=== PATIENT | male | born 1960 | race Caucasian/White ===

== ENCOUNTER 2017-10-05 23:06 | Emergency (ER) | payer MEDICAID ==
[~2017-10-05] VITALS: Ht 170.2 cm; Wt 63.5 kg
[2017-10-05 23:54] LABS: BASOPHILS ABSOLUTE AUTO 0.03 K/mm3 (0.00-0.23); BASOPHILS PERCENT AUTO 0 % (0-2); EOSINOPHILS PERCENT AUTO 0 % (0-6); Hemoglobin 15.4 g/dL (13.5-17.5); IMMATURE GRAN ABSOLUTE AUTO 0.04 K/mm3 (0.00-0.10); IMMATURE GRAN PERCENT AUTO 0 % (0-1); LYMPHOCYTES ABSOLUTE AUTO 1.37 K/mm3 (0.84-5.20); LYMPHOCYTES PERCENT AUTO 11 % (21-46); MONOCYTES ABSOLUTE AUTO 0.89 K/mm3 (0.16-1.47); MONOCYTES PERCENT AUTO 7 % (4-13); Mean Corpuscular HGB 29.7 pg (26.0-34.0); Mean Corpuscular HGB Conc 33.5 g/dL (31.5-36.5); Mean Corpuscular Volume 89 fL (80-100); Mean Platelet Volume 10.8 fL (9.1-12.4); NEUTROPHILS ABSOLUTE AUTO 10.63 K/mm3 (1.96-9.15); NEUTROPHILS PERCENT AUTO 82 % (41-73); Platelet Count 395 K/mm3 (150-400); RDW Coefficient Variation 12.6 % (11.7-14.2); RDW Standard Deviation 41.1 fL (35.1-46.3); Red Blood Cell Count 5.18 M/mm3 (4.30-5.90); White Blood Cell Count 12.96 K/mm3 (4.00-11.30)
[2017-10-06] MEDS ORDERED: THC (00:04)
[2017-10-06 00:12] LABS: Alanine Aminotransfer (ALT/SGP 20 U/L (12-78); Albumin, Blood 4.7 g/dL (3.4-5.0); Albumin/Globulin Ratio 1.3 (0.8-1.8); Alk Phos 95 U/L (50-136); Anion Gap 12 mmol/L (6-16); Aspartate Aminotrans (AST/SGOT 14 U/L (12-37); Bilirubin, Total 0.4 mg/dL (0.1-1.0); Blood Urea Nitrogen 20 mg/dL (8-24); Bun/Creatinine Ratio 25.7 (12.0-20.0); CO2, Blood 27 mmol/L (21-32); Calcium, Blood 9.3 mg/dL (8.5-10.1); Chloride, Blood 102 mmol/L (98-108); Creatinine, Blood 0.78 mg/dL (0.60-1.20); Globulin, Blood 3.5 g/dL (2.2-4.0); Glomerular Filtration Rate >60 (60-); Glucose, Blood 119 mg/dL (70-99); Potassium, Blood 3.6 mmol/L (3.5-5.5); Sodium, Blood 141 mmol/L (136-145); Total Protein, Blood 8.2 g/dL (6.4-8.2)
[2017-10-06 02:36] LABS: Bilirubin, Urine Neg (Neg); Blood, Urine Neg (Neg); Glucose Qualitative, Urine Neg (Neg); Ketones, Urine 1+ (Neg); Leukocyte Esterase, Urine 1+ (Neg); Nitrite, Urine Neg (Neg); Protein, Urine 1+ (Neg); Source, Urine Voided; Urobilinogen, Urine NORM (Normal)
[2017-10-06 02:44] LABS: Appearance, Urine Clear (Clear); Color, Urine Yellow (P-Yellow)
[2017-10-06 02:55] LABS: Bacteria Not Seen /hpf; Red Blood Cells, Urine Not Seen /hpf (0-2); Squamous Epithelial Cells Not Seen /hpf (Few)
[2017-10-06] MEDS ORDERED: ONDA4ODT MM (03:17)
[2017-10-06] MEDS ORDERED: Cipro500 MG PO (03:17)
== END 2017-10-06 03:37 | disposition home or self-care (01) ==
LOC: ER 23:06
PROVIDERS: Emergency Medicine
DX: N39.0 Urinary tract infection, site not specified (principal); Z79.899 Other long term (current) drug therapy
CPT/HCPCS: 74177; 80053; 81001; 83690; 85025; 87086; 96361; 96374; 99284; J2405; J7030; J7120; Q9967

== ENCOUNTER 2017-10-15 16:07 | Emergency (ER) | payer SELFPAY ==
[~2017-10-15] VITALS: Ht 170.2 cm; Wt 48.5 kg
[~2017-10-15 16:07] MED LIST: Cipro500 MG PO; ONDA4ODT MM; THC
[2017-10-15] MEDS ORDERED: SERT25 PO (16:25)
[2017-10-15 16:47] LABS: BASOPHILS ABSOLUTE AUTO 0.08 K/mm3 (0.00-0.23); BASOPHILS PERCENT AUTO 1 % (0-2); EOSINOPHILS PERCENT AUTO 1 % (0-6); Hematocrit 46.1 % (37.0-53.0); Hemoglobin 15.2 g/dL (13.5-17.5); IMMATURE GRAN ABSOLUTE AUTO 0.03 K/mm3 (0.00-0.10); IMMATURE GRAN PERCENT AUTO 0 % (0-1); LYMPHOCYTES ABSOLUTE AUTO 2.88 K/mm3 (0.84-5.20); LYMPHOCYTES PERCENT AUTO 28 % (21-46); MONOCYTES ABSOLUTE AUTO 0.91 K/mm3 (0.16-1.47); MONOCYTES PERCENT AUTO 9 % (4-13); Mean Corpuscular HGB 29.5 pg (26.0-34.0); Mean Corpuscular Volume 90 fL (80-100); Mean Platelet Volume 11.1 fL (9.1-12.4); NEUTROPHILS ABSOLUTE AUTO 6.23 K/mm3 (1.96-9.15); NEUTROPHILS PERCENT AUTO 61 % (41-73); Platelet Count 417 K/mm3 (150-400); RDW Coefficient Variation 12.4 % (11.7-14.2); RDW Standard Deviation 40.7 fL (35.1-46.3); Red Blood Cell Count 5.15 M/mm3 (4.30-5.90); White Blood Cell Count 10.23 K/mm3 (4.00-11.30)
[2017-10-15 16:49] LABS: Source, Urine Clean Catch
[2017-10-15 16:52] LABS: Blood, Urine 1+ (Neg); Glucose Qualitative, Urine Neg (Neg); Ketones, Urine Neg (Neg); Leukocyte Esterase, Urine 1+ (Neg); Nitrite, Urine Neg (Neg); Protein, Urine 2+ (Neg); Specific Gravity, Urine 1.025 (1.003-1.022); Urobilinogen, Urine 2+ (Normal)
[2017-10-15 16:57] LABS: Appearance, Urine Hazy (Clear); Bilirubin, Urine 1+ (Neg); Color, Urine Amber (P-Yellow)
[2017-10-15 16:58] LABS: Amorphous Light (0-Heavy); Bacteria Mod /hpf; Red Blood Cells, Urine 0-2 /hpf (0-2); Squamous Epithelial Cells Not Seen /hpf (Few)
[2017-10-15 17:02] LABS: Calcium Oxalate Crystals Mod /hpf
[2017-10-15 17:05] LABS: Alanine Aminotransfer (ALT/SGP 14 U/L (12-78); Albumin, Blood 4.2 g/dL (3.4-5.0); Albumin/Globulin Ratio 1.4 (0.8-1.8); Alk Phos 70 U/L (50-136); Anion Gap 11 mmol/L (6-16); Aspartate Aminotrans (AST/SGOT 9 U/L (12-37); Bilirubin, Total 0.5 mg/dL (0.1-1.0); Blood Urea Nitrogen 23 mg/dL (8-24); Bun/Creatinine Ratio 19.5 (12.0-20.0); CO2, Blood 26 mmol/L (21-32); Calcium, Blood 9.1 mg/dL (8.5-10.1); Chloride, Blood 103 mmol/L (98-108); Creatinine, Blood 1.18 mg/dL (0.60-1.20); Glomerular Filtration Rate >60 (60-); Glucose, Blood 109 mg/dL (70-99); Potassium, Blood 4.2 mmol/L (3.5-5.5); Sodium, Blood 140 mmol/L (136-145); Total Protein, Blood 7.2 g/dL (6.4-8.2)
== END 2017-10-15 18:58 | disposition home or self-care (01) ==
LOC: ER 16:07
PROVIDERS: Emergency Medicine
DX: R10.30 Lower abdominal pain, unspecified (principal); K63.89 Other specified diseases of intestine; Z79.899 Other long term (current) drug therapy
CPT/HCPCS: 36415; 80053; 81001; 82272; 85025; 86850; 86900; 86901; 87086; 96360; 99284; J7120

== ENCOUNTER 2018-12-09 10:05 | Inpatient (IN) | payer OTHER ==
[~2018-12-09] VITALS: Ht 170.2 cm; Wt 50.8 kg
[~2018-12-09 10:05] MED LIST changes: +Zoloft25 MG PO
[2018-12-09 10:33] LABS: Source, Urine Clean Catch
[2018-12-09 10:37] LABS: Blood, Urine 5+ (Neg); Glucose Qualitative, Urine Neg (Neg); Ketones, Urine 4+ (Neg); Leukocyte Esterase, Urine 3+ (Neg); Nitrite, Urine Neg (Neg); Protein, Urine 3+ (Neg); Specific Gravity, Urine 1.025 (1.003-1.022); Urobilinogen, Urine 1+ (Normal)
[2018-12-09 10:48] LABS: Bilirubin, Urine 1+ (Neg)
[2018-12-09 10:50] LABS: Appearance, Urine Hazy (Clear); Color, Urine Yellow (P-Yellow); White Blood Cells, Urine TNTC /hpf (0-5)
[2018-12-09 10:51] LABS: Bacteria Many /hpf; Squamous Epithelial Cells Not Seen /hpf (Few)
[2018-12-09 11:09] LABS: BASOPHILS ABSOLUTE AUTO 0.03 K/mm3 (0.00-0.23); BASOPHILS PERCENT AUTO 0 % (0-2); EOSINOPHILS PERCENT AUTO 0 % (0-6); Hematocrit 46.3 % (37.0-53.0); IMMATURE GRAN ABSOLUTE AUTO 0.16 K/mm3 (0.00-0.10); IMMATURE GRAN PERCENT AUTO 1 % (0-1); LYMPHOCYTES ABSOLUTE AUTO 0.64 K/mm3 (0.84-5.20); LYMPHOCYTES PERCENT AUTO 2 % (21-46); MONOCYTES ABSOLUTE AUTO 1.91 K/mm3 (0.16-1.47); MONOCYTES PERCENT AUTO 7 % (4-13); Mean Corpuscular HGB 29.2 pg (26.0-34.0); Mean Corpuscular HGB Conc 32.4 g/dL (31.5-36.5); Mean Corpuscular Volume 90 fL (80-100); Mean Platelet Volume 10.5 fL (9.1-12.4); NEUTROPHILS ABSOLUTE AUTO 23.65 K/mm3 (1.96-9.15); NEUTROPHILS PERCENT AUTO 90 % (41-73); Platelet Count 455 K/mm3 (150-400); RDW Coefficient Variation 12.9 % (11.7-14.2); RDW Standard Deviation 42.6 fL (35.1-46.3); Red Blood Cell Count 5.14 M/mm3 (4.30-5.90); White Blood Cell Count 26.39 K/mm3 (4.00-11.30)
[2018-12-09 11:28] LABS: Alanine Aminotransfer (ALT/SGP 13 U/L (12-78); Albumin, Blood 3.9 g/dL (3.4-5.0); Albumin/Globulin Ratio 0.8 (0.8-1.8); Alk Phos 102 U/L (50-136); Anion Gap 10 mmol/L (6-16); Aspartate Aminotrans (AST/SGOT 6 U/L (12-37); Bilirubin, Total 0.5 mg/dL (0.1-1.0); Blood Urea Nitrogen 16 mg/dL (8-24); Bun/Creatinine Ratio 27.4 (12.0-20.0); CO2, Blood 27 mmol/L (21-32); Calcium, Blood 9.8 mg/dL (8.5-10.1); Chloride, Blood 101 mmol/L (98-108); Creatinine, Blood 0.58 mg/dL (0.60-1.20); Globulin, Blood 4.6 g/dL (2.2-4.0); Glomerular Filtration Rate >60 (60-); Glucose, Blood 128 mg/dL (70-99); Sodium, Blood 138 mmol/L (136-145); Total Protein, Blood 8.5 g/dL (6.4-8.2)
--- NOTE | 2018-12-09 18:14 | NUR ---
SHIFT SUMMARY PATIENT IS PLEASANT. NO ACUTE CONCERNS AT THIS TIME FROM THE PATIENT SPECIFICALLY. THERE ARE CURRENT CONCERNS ABOUT THE PATIENT'S TESTICLES, DUE TO THE SWELLING AND TENDERNESS. HE STATES THEY ARE VERY PAINFUL AND HAVE BEEN SWOLLEN FOR ABOUT 4 DAYS. HE IS TAKING DILAUDID Q2 AND IS ON IV FLUIDS WELL ANTIBIOTICS.
--- NOTE | 2018-12-10 04:44 | NUR ---
SHIFT SUMMARY: 58 Y/O SLENDER MALE HAD RESTLESS SHIFT WITH C/O ABD PAIN RATED 6/10 WITH DILAUDID 1MG IVP GIVEN WITH RELIEF FELT, PT STARTED GO-LYTE BOWEL PREP LAST NIGHT AT 1999 WITH NO STOOL NOTED TO DATE WHILE DRINKING CONTRAST, ALERT AND ORIENTED X 4; BOWEL IS FOR COLONOSCOPY LATER TODAY, DENIES NAUSEA, BED LOW POSITION, CALL LIGHT AT SIDE.
[2018-12-10 05:03] LABS: BASOPHILS ABSOLUTE AUTO 0.02 K/mm3 (0.00-0.23); BASOPHILS PERCENT AUTO 0 % (0-2); EOSINOPHILS PERCENT AUTO 0 % (0-6); Hematocrit 40.5 % (37.0-53.0); Hemoglobin 13.3 g/dL (13.5-17.5); IMMATURE GRAN ABSOLUTE AUTO 0.09 K/mm3 (0.00-0.10); IMMATURE GRAN PERCENT AUTO 1 % (0-1); LYMPHOCYTES ABSOLUTE AUTO 0.84 K/mm3 (0.84-5.20); LYMPHOCYTES PERCENT AUTO 4 % (21-46); MONOCYTES ABSOLUTE AUTO 1.51 K/mm3 (0.16-1.47); MONOCYTES PERCENT AUTO 8 % (4-13); Mean Corpuscular HGB 29.8 pg (26.0-34.0); Mean Corpuscular HGB Conc 32.8 g/dL (31.5-36.5); Mean Corpuscular Volume 91 fL (80-100); Mean Platelet Volume 10.4 fL (9.1-12.4); NEUTROPHILS ABSOLUTE AUTO 17.39 K/mm3 (1.96-9.15); NEUTROPHILS PERCENT AUTO 88 % (41-73); Platelet Count 354 K/mm3 (150-400); RDW Coefficient Variation 12.9 % (11.7-14.2); RDW Standard Deviation 42.6 fL (35.1-46.3); Red Blood Cell Count 4.47 M/mm3 (4.30-5.90); White Blood Cell Count 19.85 K/mm3 (4.00-11.30)
[2018-12-10 05:25] LABS: Anion Gap 8 mmol/L (6-16); Blood Urea Nitrogen 10 mg/dL (8-24); Bun/Creatinine Ratio 19.1 (12.0-20.0); CO2, Blood 31 mmol/L (21-32); Calcium, Blood 8.8 mg/dL (8.5-10.1); Chloride, Blood 98 mmol/L (98-108); Creatinine, Blood 0.52 mg/dL (0.60-1.20); Glomerular Filtration Rate >60 (60-); Glucose, Blood 98 mg/dL (70-99); Potassium, Blood 3.6 mmol/L (3.5-5.5); Sodium, Blood 137 mmol/L (136-145)
--- NOTE | 2018-12-10 06:47 | NUR ---
PT HAD SMALL LOOSE BM AND DIARRHEA (FIRST STOOL AFTER GOLYTE STARTED).
--- NOTE | 2018-12-10 14:47 | NUR ---
12/10/18 1447 Laya Dave History, Chart, Medications and Allergies reviewed before start of procedure. MONITOR INTACT WITH CONTINUOUS PULSE OXIMETRY AND INTERMITTENT BP.O2 VIA N/C INTACT THROUGHOUT SEDATION/PROCEDURE. 3-LEAD EKG REVIEWED WITH PHYSICIAN PRIOR TO START OF PROCEDURE. PATIENT DETERMINED TO BE ASA APPROPRIATE FOR PROPOFOL SEDATION PRIOR TO START OF PROCEDURE BY DR. MELÉNDEZ.
--- NOTE | 2018-12-10 19:57 | NUR ---
SHIFT SUMMARY PATIENT IS PLEASANT, HE HAD A COLONOSCOPY TODAY. INDEPENDENT IN THE ROOM, ASKS FOR HIS PAIN MEDICATION EVERY 2 HOURS. HIS TESTICLES ARE STILL SWOLLEN AND HIS IV ACCESS RUNS WELL. PATIENT WILL HAVE A CT OF THE ABDOMEN AND PELVIS TOMORROW MORNING AND THEN THE PATIENT HAS A CONSULT FOR POSSIBLE SURGERY OF A GASTROINTESTINAL FISTULA.
--- NOTE | 2018-12-10 20:35 | NUR ---
ORAL CONTRAST DRINK PROVIDED W/HS MEDS. PT AWARE THAT NEXT DOSE WILL BE AT 0530 AND TO BE NPO AT MN.
--- NOTE | 2018-12-11 00:02 | NUR ---
PT MADE NPO RX'D.
--- NOTE | 2018-12-11 04:23 | NUR ---
SUMMARY: A/OX4, INDEPENDENT AND SPECIFIES NEEDS. HE'S USED THE URINAL IN BED THIS SHIFT PER CHOICE. PT SLEPT W/EARPLUGS IN PLACE AND EAR MUFFS MOST OF NOCTE AND AWOKE BRIEFLY FOR PRN MEDS. HE'S BEEN MEDICATED T/O NOCTE APPROX Q2H W/DILAUDID PRN FOR C/O OF GROIN/L.TESTE PAIN. HE ALSO REPORTS THAT SCROTAL SWELLING HAS INCREASED BY 40% IN 24HRS. MD'S HAVE PREVIOUSLY BEEN AWARE AND NOTATE TX W/QUINOLONE ABX. PT HAS LR INFUSING AND HAS RECIEVED IV ABX T/O NOCTE. HE IS SCHEDULED FOR A CT THIS AM, HAVING DRANK THE 1ST DOSE OF ORAL CONTRAST AT HS AND HAS BEEN NPO SINCE MN EXCEPT NEXT DOSE OF ORAL CONTRAST AT 0530. CX WAS CALLED TO ANSWERING SERVICE FOR O900 OR LATER BY FAUSTO MA SO CT RESULTS WILL BE AVAILABLE PER ORDER. PT HAS DENIED DIFFICULTY VOIDING, ABDO DISTENSION, NAUSEA AND ALL OTHER COMPLAINTS OTHER THEN PAIN. NO ACUTE CHANGES, VSS AND AFEBRILE. WCTM AND REPORT TO DAY RN.
[2018-12-11 04:43] LABS: BASOPHILS ABSOLUTE AUTO 0.03 K/mm3 (0.00-0.23); BASOPHILS PERCENT AUTO 0 % (0-2); EOSINOPHILS PERCENT AUTO 0 % (0-6); Hematocrit 38.9 % (37.0-53.0); Hemoglobin 12.8 g/dL (13.5-17.5); IMMATURE GRAN ABSOLUTE AUTO 0.14 K/mm3 (0.00-0.10); IMMATURE GRAN PERCENT AUTO 1 % (0-1); LYMPHOCYTES ABSOLUTE AUTO 0.76 K/mm3 (0.84-5.20); LYMPHOCYTES PERCENT AUTO 4 % (21-46); MONOCYTES ABSOLUTE AUTO 1.72 K/mm3 (0.16-1.47); MONOCYTES PERCENT AUTO 8 % (4-13); Mean Corpuscular HGB 29.2 pg (26.0-34.0); Mean Corpuscular HGB Conc 32.9 g/dL (31.5-36.5); Mean Corpuscular Volume 89 fL (80-100); Mean Platelet Volume 10.1 fL (9.1-12.4); NEUTROPHILS ABSOLUTE AUTO 19.09 K/mm3 (1.96-9.15); NEUTROPHILS PERCENT AUTO 88 % (41-73); Platelet Count 316 K/mm3 (150-400); RDW Coefficient Variation 12.9 % (11.7-14.2); Red Blood Cell Count 4.39 M/mm3 (4.30-5.90); White Blood Cell Count 21.74 K/mm3 (4.00-11.30)
[2018-12-11 05:04] LABS: Anion Gap 4 mmol/L (6-16); Blood Urea Nitrogen 5 mg/dL (8-24); Bun/Creatinine Ratio 9.2 (12.0-20.0); CO2, Blood 34 mmol/L (21-32); Calcium, Blood 8.3 mg/dL (8.5-10.1); Chloride, Blood 99 mmol/L (98-108); Creatinine, Blood 0.54 mg/dL (0.60-1.20); Glomerular Filtration Rate >60 (60-); Glucose, Blood 100 mg/dL (70-99); Potassium, Blood 3.5 mmol/L (3.5-5.5); Sodium, Blood 137 mmol/L (136-145)
--- NOTE | 2018-12-11 18:20 | NUR ---
NO ACUTE CHANGES NOTED THIS SHIFT. DR RIVERA SAW PT THIS AFTERNOON, NO SURGERY TODAY, CLEAR LIQUID DIET ORDERED. PT CONTINUES TO REQUEST HIS PAIN MEDS Q2H, REPORTS PAIN ALWAYS AT 10/10. WILL CONTINUE TO MONITOR AND REPORT TO ONCOMING RN
[2018-12-12 04:57] LABS: BASOPHILS ABSOLUTE AUTO 0.04 K/mm3 (0.00-0.23); BASOPHILS PERCENT AUTO 0 % (0-2); EOSINOPHILS ABSOLUTE AUTO 0.01 K/mm3 (0.00-0.68); EOSINOPHILS PERCENT AUTO 0 % (0-6); Hematocrit 40.1 % (37.0-53.0); Hemoglobin 13.1 g/dL (13.5-17.5); IMMATURE GRAN ABSOLUTE AUTO 0.14 K/mm3 (0.00-0.10); IMMATURE GRAN PERCENT AUTO 1 % (0-1); LYMPHOCYTES ABSOLUTE AUTO 0.88 K/mm3 (0.84-5.20); LYMPHOCYTES PERCENT AUTO 4 % (21-46); MONOCYTES ABSOLUTE AUTO 1.59 K/mm3 (0.16-1.47); MONOCYTES PERCENT AUTO 8 % (4-13); Mean Corpuscular HGB Conc 32.7 g/dL (31.5-36.5); Mean Corpuscular Volume 89 fL (80-100); Mean Platelet Volume 10.7 fL (9.1-12.4); NEUTROPHILS ABSOLUTE AUTO 17.96 K/mm3 (1.96-9.15); NEUTROPHILS PERCENT AUTO 87 % (41-73); Platelet Count 358 K/mm3 (150-400); RDW Coefficient Variation 12.9 % (11.7-14.2); RDW Standard Deviation 42.5 fL (35.1-46.3); Red Blood Cell Count 4.51 M/mm3 (4.30-5.90); White Blood Cell Count 20.62 K/mm3 (4.00-11.30)
[2018-12-12 05:23] LABS: Anion Gap 9 mmol/L (6-16); Blood Urea Nitrogen 5 mg/dL (8-24); Bun/Creatinine Ratio 9.9 (12.0-20.0); CO2, Blood 33 mmol/L (21-32); Calcium, Blood 8.2 mg/dL (8.5-10.1); Chloride, Blood 97 mmol/L (98-108); Creatinine, Blood 0.51 mg/dL (0.60-1.20); Glomerular Filtration Rate >60 (60-); Glucose, Blood 90 mg/dL (70-99); Potassium, Blood 3.4 mmol/L (3.5-5.5); Sodium, Blood 139 mmol/L (136-145)
--- NOTE | 2018-12-12 06:24 | NUR ---
SUMMARY: A/OX4, SPECIFIES NEEDS AND INDEPENDENT IN ROOM. PT REPORTED THAT TOLD HIM SX IS PENDING THE SWELLING REDUCTION OF HIS R.TESTE AND INFORMED PT THAT SWELLING IS 2NDARY TO INFECTION. NO ORDERS FOR SX OR NPO STATUS PRESENT AT THIS TIME. HE CONT'S TO REPORT THAT SWELLING IS 40% BIGGER AND BELIEVES CAUSE TO BE FROM ELECTROLYTES DESPITE MD EXPLANANTION. IV ABX RECEIEVED AND LR CONT'S INFUSING. DILUADID WAS RECIEVED APPROX Q2-3H PRN FOR CONT'D C/O TESTE/GROIN PAIN. PT IS TOLERATING CL DIET AT THIS TIME. NO ACUTE CHANGES, VSS/AFEBRILE. WCTM AND REPORT TO DAY RN.
--- NOTE | 2018-12-13 02:07 | NUR ---
PAIN PT REQUIRING A HEVAY AMOUNT OF NARCOTICS FOR TESTICLE PAIN. PT IS REQUSTING 1MG IV DILAUDID EVERY 2 HRS AND 5MG PO OXYCODONE EVERY 6 HOURS. PT RATES PAIN 10/10 PRE- AND POST PAIN ASSESSMENT.
[2018-12-13 05:02] LABS: BASOPHILS ABSOLUTE AUTO 0.03 K/mm3 (0.00-0.23); BASOPHILS PERCENT AUTO 0 % (0-2); EOSINOPHILS ABSOLUTE AUTO 0.05 K/mm3 (0.00-0.68); EOSINOPHILS PERCENT AUTO 0 % (0-6); Hematocrit 38.6 % (37.0-53.0); Hemoglobin 12.5 g/dL (13.5-17.5); IMMATURE GRAN ABSOLUTE AUTO 0.13 K/mm3 (0.00-0.10); IMMATURE GRAN PERCENT AUTO 1 % (0-1); LYMPHOCYTES PERCENT AUTO 6 % (21-46); MONOCYTES ABSOLUTE AUTO 1.63 K/mm3 (0.16-1.47); MONOCYTES PERCENT AUTO 9 % (4-13); Mean Corpuscular HGB 28.7 pg (26.0-34.0); Mean Corpuscular HGB Conc 32.4 g/dL (31.5-36.5); Mean Corpuscular Volume 89 fL (80-100); Mean Platelet Volume 10.5 fL (9.1-12.4); NEUTROPHILS ABSOLUTE AUTO 14.42 K/mm3 (1.96-9.15); NEUTROPHILS PERCENT AUTO 83 % (41-73); Platelet Count 387 K/mm3 (150-400); RDW Coefficient Variation 12.9 % (11.7-14.2); RDW Standard Deviation 42.5 fL (35.1-46.3); Red Blood Cell Count 4.35 M/mm3 (4.30-5.90); White Blood Cell Count 17.36 K/mm3 (4.00-11.30)
[2018-12-13 05:18] LABS: Anion Gap 7 mmol/L (6-16); Blood Urea Nitrogen 3 mg/dL (8-24); Bun/Creatinine Ratio 6.3 (12.0-20.0); CO2, Blood 33 mmol/L (21-32); Calcium, Blood 8.1 mg/dL (8.5-10.1); Chloride, Blood 100 mmol/L (98-108); Creatinine, Blood 0.48 mg/dL (0.60-1.20); Glomerular Filtration Rate >60 (60-); Glucose, Blood 123 mg/dL (70-99); Potassium, Blood 3.1 mmol/L (3.5-5.5); Sodium, Blood 140 mmol/L (136-145)
--- NOTE | 2018-12-13 06:43 | NUR ---
SHIFT SUMMARY PT REQURING FREQUENT IV AND ORAL NARCOTICS TO MANAGE 10/10 PAIN TO TESTICLES. TESTICLES ARE RED AND SWOLLEN. OFFERED PT PILLOW SLING TO PROVIDE RELIEF, BUT PT DECLINES OFFER STATING "IT WONT WORK". PT IS INDEPENDENT IN RM, STATES PAIN INCREASES WITH ANY MOVEMENT. TOLERATING CLEAR LIQUIDS DIET, DENIES ANY N/V. LR RUNNING @ 125 ML/HR. PT HAS BEEN AWAKE ALL NIGHT, BESIDES THIS LAST HR DURING LAST ROUND PT WAS ASLEEP. CALL LT IN REACH, ABLE TO MAKE NEEDS KNOWN. WILL CONT TO MONITOR AND PROVIDE CARE UNTIL PRESUMED BY ONCOMING RN.
--- NOTE | 2018-12-13 17:25 | NUR ---
SUMMARY PT RESTING QUIETLY IN BED, WAKES EASILY, HAS BEEN INDEPENDENT IN THE ROOM, PLEASANT AND COOPERATIVE WITH CARE, MED PER EMAR FOR PAIN FREQUENTLY, PT HAS DENIED ANY NAUSEA TODAY, VSS, NO ACUTE CHANGES, WILL CONT TO MONITOR
[2018-12-14 04:42] LABS: BASOPHILS ABSOLUTE AUTO 0.06 K/mm3 (0.00-0.23); BASOPHILS PERCENT AUTO 0 % (0-2); EOSINOPHILS ABSOLUTE AUTO 0.21 K/mm3 (0.00-0.68); EOSINOPHILS PERCENT AUTO 1 % (0-6); Hematocrit 41.7 % (37.0-53.0); Hemoglobin 13.5 g/dL (13.5-17.5); IMMATURE GRAN ABSOLUTE AUTO 0.16 K/mm3 (0.00-0.10); IMMATURE GRAN PERCENT AUTO 1 % (0-1); LYMPHOCYTES ABSOLUTE AUTO 1.64 K/mm3 (0.84-5.20); LYMPHOCYTES PERCENT AUTO 9 % (21-46); MONOCYTES ABSOLUTE AUTO 1.48 K/mm3 (0.16-1.47); MONOCYTES PERCENT AUTO 8 % (4-13); Mean Corpuscular HGB Conc 32.4 g/dL (31.5-36.5); Mean Corpuscular Volume 90 fL (80-100); Mean Platelet Volume 10.3 fL (9.1-12.4); NEUTROPHILS ABSOLUTE AUTO 13.97 K/mm3 (1.96-9.15); NEUTROPHILS PERCENT AUTO 80 % (41-73); Platelet Count 468 K/mm3 (150-400); RDW Coefficient Variation 13.2 % (11.7-14.2); RDW Standard Deviation 43.4 fL (35.1-46.3); Red Blood Cell Count 4.65 M/mm3 (4.30-5.90); White Blood Cell Count 17.52 K/mm3 (4.00-11.30)
[2018-12-14 05:03] LABS: Anion Gap 7 mmol/L (6-16); Blood Urea Nitrogen 4 mg/dL (8-24); CO2, Blood 33 mmol/L (21-32); Calcium, Blood 8.7 mg/dL (8.5-10.1); Chloride, Blood 100 mmol/L (98-108); Glomerular Filtration Rate >60 (60-); Glucose, Blood 106 mg/dL (70-99); Magnesium, Blood 1.9 mg/dL (1.6-2.4); Potassium, Blood 3.5 mmol/L (3.5-5.5); Sodium, Blood 140 mmol/L (136-145)
--- NOTE | 2018-12-14 06:11 | NUR ---
SHIFT SUMMARY NO ACUTE CHANGES. PT REQUIRING FREQUENT IV AND ORAL PAIN MEDICATIONS FOR SWOLLEN AND PAINFUL SCROTUM. HOWEVER, PT DOES REPORT SLIGHT DECREASE IN SWELLING AND REDNESS. 1MG IV DILAUDID ADMINISTERED Q2H, 5M GPO ROXICODONE ADMINISTERED Q6H. VSS, AFEBRILE. TOLERATING CLEAR LIQUID DIET, NO N/V. LR RUNNING @ 125 ML/R. CALL LT IN REACH, ABLE TO MAKE NEEDS KNOWN. WILL CONT TO MONITOR AND PROVIDE CARE UNTIL PRESUMED BY ONCOMING RN.
--- NOTE | 2018-12-14 17:06 | NUR ---
SUMMARY PT RESTING IN BED QUIETLY, PT HAS BEEN INDEPENDENT IN THE ROOM, PT HAS BEEN MED PER EMAR FREQUENTLY FOR C/O PAIN, PT REPORTS DECREASED SWELLING IN HIS SCROTUM TODAY COMPARED WITH YESTERDAY, PT'S DIET HAS BEEN ADVANCED TO FULL LIQUID, PT JUDITH WELL, NO COMPLAINTS, VSS, NO ACUTE CHANGES, WILL CONT TO MONITOR
--- NOTE | 2018-12-15 06:18 | NUR ---
SHIFT SUMMARY NO ACUTE CHANGES TONIGHT. PT REPORTS SWELLING TO SCROTUM HAS DECREASED IN SIZE AND REDNESS, HOWEVER PT IS STILL REQUIRING 1 MG IV DILAUDID Q2H AND 5 MG PO ROXICODONE Q6H. PT REPORTS PAIN IS 10/10 AND APPEARS TO BE COMFORTABLE IN BED. PT TOLERATING FULL LIQUID DIET, NO N/V. NO OTHER CHANGES TO REPORT. WILL CONT TO MONITOR AND PROVIDE CARE UNTIL PRESUMED BY ONCOMING RN.
--- NOTE | 2018-12-15 14:55 | NUR ---
Initial palliative care consult: Lincoln is a 58 year old with a history of diverticulitis, bladder infections, asthma, depression/anxiety, and an intestinal vesicular fistula. He was admitted on 12/09/18 with a UTI, sepsis, epididymitis. He reports that he lives with his nephew. Prior to coming into the hospital he was independent with ADLs and drives. He reports his nephew cooks and helps with house keeping. He has never been and has no children. He has a sister who he is not close to who lives in [place]. He reports that he is originally from [place]. 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 He states his work has allowed him to travel to many different places. He reports that currently his infection seems to be improving and his scrotal swelling is decreasing. He is using a k-pad and is taking IV and PO pain medications routinely for his pain. He reports that his pain level is 8/10, however he states he is happy with his current pain medication options. He reports that it is his normal behavior to awaken 4-5 times during the night. Discussed importance of sleep and the healing process. He denies N/V, SOB, RLS or numbness and tingling. He reports tinnitus which is a chronic problem for him. He reports he understands the plan of care going forward. He is continuing on antibiotics and if he continues to do well he will be discharged home with his nephew, possibly early next week. He plans to follow up with a surgeon to have part of his intestines removed once the infection is cleared up and the swelling has decreased. He reports he is aware of three potential surgical procedures. Option one per his report is the ends of the colon are sewed back together. Option two is a temporary colostomy. Option three is a permenant colostomy. He states he feels well informed by his doctors and is happy with the care he is receiving. Current pain regimen is dilaudid 1 mg IV Q2H and roxicodone 5 mg PO Q6H. Could consider increasing roxicodone dose to 10 mg PO Q6H as this may allow him to sleep for longer periods of time and require less IV dilaudid. Pt will need to have pain managed on PO meds prior to discharge. PC to continue to follow for symptom management.
--- NOTE | 2018-12-15 17:07 | NUR ---
SUMMARY PT RESTING QUIETLY IN BED, WAKES EASILY, MED PER EMAR FOR PAIN, PT INDEPENDENT IN THE ROOM, NO COMPLAINTS, REPORTS HIS SWELLING HAS IMPROVED, VSS, NO ACUTE CHANGES, WILL CONT TO MONITOR
[2018-12-16 04:47] LABS: BASOPHILS ABSOLUTE AUTO 0.07 K/mm3 (0.00-0.23); BASOPHILS PERCENT AUTO 1 % (0-2); EOSINOPHILS ABSOLUTE AUTO 0.21 K/mm3 (0.00-0.68); EOSINOPHILS PERCENT AUTO 1 % (0-6); Hematocrit 42.3 % (37.0-53.0); Hemoglobin 13.6 g/dL (13.5-17.5); IMMATURE GRAN ABSOLUTE AUTO 0.18 K/mm3 (0.00-0.10); IMMATURE GRAN PERCENT AUTO 1 % (0-1); LYMPHOCYTES ABSOLUTE AUTO 1.67 K/mm3 (0.84-5.20); LYMPHOCYTES PERCENT AUTO 11 % (21-46); MONOCYTES ABSOLUTE AUTO 1.45 K/mm3 (0.16-1.47); MONOCYTES PERCENT AUTO 10 % (4-13); Mean Corpuscular HGB 28.9 pg (26.0-34.0); Mean Corpuscular HGB Conc 32.2 g/dL (31.5-36.5); Mean Corpuscular Volume 90 fL (80-100); Mean Platelet Volume 10.3 fL (9.1-12.4); NEUTROPHILS ABSOLUTE AUTO 11.14 K/mm3 (1.96-9.15); NEUTROPHILS PERCENT AUTO 76 % (41-73); Platelet Count 496 K/mm3 (150-400); RDW Coefficient Variation 12.8 % (11.7-14.2); RDW Standard Deviation 42.4 fL (35.1-46.3); White Blood Cell Count 14.72 K/mm3 (4.00-11.30)
--- NOTE | 2018-12-16 04:52 | NUR ---
SHIFT SUMMARY PT CONTINUES TO HAVE ONGOING DISCOMFORT. PT TX PER EMAR WITH GOOD RELIEF. PT SLEPT OFF AND ON. PT HAD NO OTHER COMPLAINTS THIS SHIFT. PT CURRENTLY AWAKE WITH CALL LIGHT IN REACH.
[2018-12-16 05:05] LABS: Anion Gap 5 mmol/L (6-16); Blood Urea Nitrogen 6 mg/dL (8-24); Bun/Creatinine Ratio 10.9 (12.0-20.0); CO2, Blood 33 mmol/L (21-32); Calcium, Blood 8.6 mg/dL (8.5-10.1); Chloride, Blood 99 mmol/L (98-108); Creatinine, Blood 0.55 mg/dL (0.60-1.20); Glomerular Filtration Rate >60 (60-); Glucose, Blood 95 mg/dL (70-99); Potassium, Blood 3.6 mmol/L (3.5-5.5); Sodium, Blood 137 mmol/L (136-145)
--- NOTE | 2018-12-16 19:08 | NUR ---
SHIFT SUMMARY: NO ACUTE CHANGES TO REPORT THIS SHIFT. PT A&O; CALM AND COOEPRATIVE WITH CARE. MEDICATED FOR PAIN PER EMAR. PT INDEPENDENT IN ROOM. IV ABX CONTINUING. REPORT GIVEN TO ONCOMING RN.
--- NOTE | 2018-12-17 04:39 | NUR ---
SHIFT SUMMARY PT DISCOMFORT MANAGED PER EMAR. PT HAD NO ISSUES NOTED. PT SLEPT OFF AND ON T/O SHIFT. PT SLEEPING AND BREATHING EASY. CALL LIGHT IN REACH.
--- NOTE | 2018-12-17 18:16 | NUR ---
SHIFT SUMMARY: NO ACUTE CHANGES TO REPORT THIS SHIFT. PT A&O; CALM AND COOPERATIVE WITH CARE; INDEPENDENT IN ROOM. MEDICATED FOR PAIN PER EMAR. IV ABX CONTINUING. WCTM.
[2018-12-18 04:54] LABS: BASOPHILS ABSOLUTE AUTO 0.06 K/mm3 (0.00-0.23); BASOPHILS PERCENT AUTO 0 % (0-2); EOSINOPHILS PERCENT AUTO 3 % (0-6); Hematocrit 43.8 % (37.0-53.0); IMMATURE GRAN PERCENT AUTO 1 % (0-1); LYMPHOCYTES PERCENT AUTO 16 % (21-46); MONOCYTES PERCENT AUTO 10 % (4-13); Mean Corpuscular HGB 28.9 pg (26.0-34.0); Mean Corpuscular Volume 91 fL (80-100); Mean Platelet Volume 10.3 fL (9.1-12.4); NEUTROPHILS ABSOLUTE AUTO 10.23 K/mm3 (1.96-9.15); NEUTROPHILS PERCENT AUTO 70 % (41-73); Platelet Count 525 K/mm3 (150-400); RDW Standard Deviation 42.8 fL (35.1-46.3); Red Blood Cell Count 4.84 M/mm3 (4.30-5.90); White Blood Cell Count 14.69 K/mm3 (4.00-11.30)
[2018-12-18 05:19] LABS: Anion Gap 5 mmol/L (6-16); Blood Urea Nitrogen 6 mg/dL (8-24); Bun/Creatinine Ratio 9.8 (12.0-20.0); CO2, Blood 33 mmol/L (21-32); Calcium, Blood 8.6 mg/dL (8.5-10.1); Chloride, Blood 97 mmol/L (98-108); Creatinine, Blood 0.61 mg/dL (0.60-1.20); Glomerular Filtration Rate >60 (60-); Glucose, Blood 119 mg/dL (70-99); Potassium, Blood 4.1 mmol/L (3.5-5.5); Sodium, Blood 135 mmol/L (136-145)
--- NOTE | 2018-12-18 06:46 | NUR ---
SHIFT SUMMARY PT CONTINUES TO COMPLAIN OF DISCOMFORT. PT TX PER EMAR WITH RELIEF. NO ISSUES NOTED. PT AWAKE AND BREATHING EASY. CALL LIGHT IN REACH.
--- NOTE | 2018-12-18 08:15 | NUR ---
PT PLEASANT COOP A/O. TALKATIVE. STATES PIAN GROIN AREA. SCROTAL. MED PER EMAR. H/R REG, NO MURMER NOTED. NO TELE. LUNGS CLEAR, RESP EASY, UNLABORED. ON R.A. BT X4 LAST BM TODAY. VIODS INDEPENDANT IN ROOM. BED IN LOW POSITION, CALL LITE IN REACH, CALLS APPROP
--- NOTE | 2018-12-18 16:01 | NUR ---
PT PLEASANT COOP. PAIN MANAGED WITH AVAIL MEDS. DOES ASK FOR PAIN MEDS WHEN COME AVAIL Q 2 HRS. NO OTHER CONCERNS AT THIS TIME. BED IN LOW POSITION, CALL LITE IN REACH, CALLS APPROP
--- NOTE | 2018-12-19 06:30 | NUR ---
SHIFT SUMMARY NO ACUTE EVENTS OVERNIGHT. PATIENT REQUIRING IV PAIN MEDS EVERY 2 HOURS. PATIENT SLEPT OFF AND ON THROUGH OUT THE NIGHT.
[2018-12-19] MEDS ORDERED: AMLO10 PO (10:14)
[2018-12-19] MEDS ORDERED: CIPR500 PO (10:14)
[2018-12-19] MEDS ORDERED: METR500 PO (10:15)
[2018-12-19] MEDS ORDERED: LACT PO (10:15)
[2018-12-19] MEDS ORDERED: ROXICODONE5 MG PO (10:16)
--- NOTE | 2018-12-19 11:35 | NUR ---
PT. DISCHARGED HOME. FRIEND PICKING HIM UP AT ADMITTING. WENT OVER DISCHARGE ORDERS AND PT VERBALIZED UNDERSTANDING OF APPOINTMENTS AND MEDICATIONS.
== END 2018-12-19 11:40 | disposition home or self-care (01) | DRG 872 ==
LOC: ER 10:05 → MEDS 13:26 → ENPENDDIS 12-19 11:09 → MEDS 12-19 11:40
PROVIDERS: Emergency Medicine; Hospitalist; Internal Medicine; Internal Medicine Gastroenterology; ADMIT Internal Medicine
PROC: 0DBM8ZX Excision of Descending Colon, Via Natural or Artificial Opening Endoscopic, Diagnostic (ICD-10-PCS; principal; 2018-12-10 12:00)
DX: A41.50 Gram-negative sepsis, unspecified (principal); N39.0 Urinary tract infection, site not specified; N32.1 Vesicointestinal fistula; N45.1 Epididymitis; K63.89 Other specified diseases of intestine; J45.909 Unspecified asthma, uncomplicated; F41.8 Other specified anxiety disorders; K57.30 Diverticulosis of large intestine without perforation or abscess without bleeding; K63.5 Polyp of colon; K64.8 Other hemorrhoids; E87.6 Hypokalemia
CPT/HCPCS: 36415; 74177; 76870; 80048; 80053; 81001; 83605; 83735; 85025; 87077; 87086; 87186; 88305; 96361; 96365; 96367; 96375; 96376; 99285-25; A9270-GY; J0696; J0744; J1170; J2405; J2704; J7030; J7050; J7120; Q9967

== ENCOUNTER 2018-12-28 09:05 | Emergency (ER) | payer OTHER ==
[~2018-12-28] VITALS: Ht 170.2 cm; Wt 52.2 kg
[~2018-12-28 09:05] MED LIST changes: +AMLO10 PO; +CIPR500 PO; +LACT PO; +METR500 PO; +ROXICODONE5 MG PO
== END 2018-12-28 10:42 | disposition home or self-care (01) ==
LOC: ER 09:05
DX: S61.411A Laceration without foreign body of right hand, initial encounter (principal); F41.9 Anxiety disorder, unspecified; F32.9 Major depressive disorder, single episode, unspecified; Z87.440 Personal history of urinary (tract) infections; Z79.899 Other long term (current) drug therapy; W26.8XXA Contact with other sharp object(s), not elsewhere classified, initial encounter
CPT/HCPCS: 12002; 99282-25

== ENCOUNTER 2019-01-10 18:54 | Emergency (ER) | payer OTHER ==
[~2019-01-10] VITALS: Ht 170.2 cm; Wt 52.2 kg
[2019-01-10 20:18] LABS: BASOPHILS ABSOLUTE AUTO 0.03 K/mm3 (0.00-0.23); BASOPHILS PERCENT AUTO 0 % (0-2); EOSINOPHILS ABSOLUTE AUTO 0.01 K/mm3 (0.00-0.68); EOSINOPHILS PERCENT AUTO 0 % (0-6); Hematocrit 44.2 % (37.0-53.0); Hemoglobin 13.8 g/dL (13.5-17.5); IMMATURE GRAN ABSOLUTE AUTO 0.09 K/mm3 (0.00-0.10); IMMATURE GRAN PERCENT AUTO 1 % (0-1); LYMPHOCYTES ABSOLUTE AUTO 1.01 K/mm3 (0.84-5.20); LYMPHOCYTES PERCENT AUTO 6 % (21-46); MONOCYTES ABSOLUTE AUTO 0.61 K/mm3 (0.16-1.47); MONOCYTES PERCENT AUTO 4 % (4-13); Mean Corpuscular HGB 28.8 pg (26.0-34.0); Mean Corpuscular HGB Conc 31.2 g/dL (31.5-36.5); Mean Corpuscular Volume 92 fL (80-100); NEUTROPHILS ABSOLUTE AUTO 15.41 K/mm3 (1.96-9.15); NEUTROPHILS PERCENT AUTO 90 % (41-73); Platelet Count 534 K/mm3 (150-400); RDW Coefficient Variation 13.7 % (11.7-14.2); RDW Standard Deviation 46.4 fL (35.1-46.3); Red Blood Cell Count 4.79 M/mm3 (4.30-5.90); White Blood Cell Count 17.16 K/mm3 (4.00-11.30)
[2019-01-10 20:45] LABS: Alanine Aminotransfer (ALT/SGP 43 U/L (12-78); Albumin, Blood 3.6 g/dL (3.4-5.0); Albumin/Globulin Ratio 0.8 (0.8-1.8); Alk Phos 94 U/L (50-136); Anion Gap 7 mmol/L (6-16); Aspartate Aminotrans (AST/SGOT 39 U/L (12-37); Bilirubin, Total 0.2 mg/dL (0.1-1.0); Blood Urea Nitrogen 9 mg/dL (8-24); Bun/Creatinine Ratio 15.3 (12.0-20.0); CO2, Blood 26 mmol/L (21-32); Calcium, Blood 9.1 mg/dL (8.5-10.1); Chloride, Blood 103 mmol/L (98-108); Creatinine, Blood 0.59 mg/dL (0.60-1.20); Globulin, Blood 4.6 g/dL (2.2-4.0); Glomerular Filtration Rate >60 (60-); Glucose, Blood 145 mg/dL (70-99); Potassium, Blood 4.7 mmol/L (3.5-5.5); Sodium, Blood 136 mmol/L (136-145); Total Protein, Blood 8.2 g/dL (6.4-8.2)
[2019-01-10 22:16] LABS: Source, Urine Clean Catch
[2019-01-10 22:18] LABS: Bilirubin, Urine Neg (Neg); Blood, Urine 4+ (Neg); Glucose Qualitative, Urine Neg (Neg); Ketones, Urine 1+ (Neg); Leukocyte Esterase, Urine 2+ (Neg); Nitrite, Urine Neg (Neg); Protein, Urine 1+ (Neg); Specific Gravity, Urine 1.025 (1.003-1.022); Urobilinogen, Urine NORM (Normal)
[2019-01-10 22:20] LABS: Appearance, Urine Clear (Clear); Color, Urine Yellow (P-Yellow)
[2019-01-10 22:24] LABS: Bacteria Few /hpf; Red Blood Cells, Urine Rare /hpf (0-2); Renal Epithelial Rare /hpf (0-Rare); Squamous Epithelial Cells Not Seen /hpf (Few); White Blood Cells, Urine TNTC /hpf (0-5)
== END 2019-01-10 23:10 | disposition short-term general hospital (02) ==
LOC: ER 18:54
PROVIDERS: Emergency Medicine
DX: N49.2 Inflammatory disorders of scrotum (principal); F32.9 Major depressive disorder, single episode, unspecified; J45.909 Unspecified asthma, uncomplicated; Z88.5 Allergy status to narcotic agent
CPT/HCPCS: 36415; 76870; 80053; 81001; 83036; 85025; 87086; 96365; 96367; 96375; 96376; 99285-25; J2543; J3010; J3370; J7030

== ENCOUNTER 2019-01-16 06:50 | Emergency (ER) | payer OTHER ==
[~2019-01-16] VITALS: Ht 170.2 cm; Wt 48.5 kg
[2019-01-16] MEDS ORDERED: Bactrim Ds Tab1 EACH PO (06:54)
[2019-01-16] MEDS ORDERED: OXYC5 PO (06:55)
[2019-01-16 07:07] LABS: BASOPHILS ABSOLUTE AUTO 0.06 K/mm3 (0.00-0.23); BASOPHILS PERCENT AUTO 0 % (0-2); EOSINOPHILS ABSOLUTE AUTO 0.12 K/mm3 (0.00-0.68); EOSINOPHILS PERCENT AUTO 1 % (0-6); Hematocrit 43.2 % (37.0-53.0); Hemoglobin 13.9 g/dL (13.5-17.5); IMMATURE GRAN ABSOLUTE AUTO 0.07 K/mm3 (0.00-0.10); IMMATURE GRAN PERCENT AUTO 1 % (0-1); LYMPHOCYTES ABSOLUTE AUTO 1.88 K/mm3 (0.84-5.20); LYMPHOCYTES PERCENT AUTO 14 % (21-46); MONOCYTES ABSOLUTE AUTO 0.77 K/mm3 (0.16-1.47); MONOCYTES PERCENT AUTO 6 % (4-13); Mean Corpuscular HGB 28.7 pg (26.0-34.0); Mean Corpuscular HGB Conc 32.2 g/dL (31.5-36.5); Mean Platelet Volume 10.1 fL (9.1-12.4); NEUTROPHILS ABSOLUTE AUTO 10.86 K/mm3 (1.96-9.15); NEUTROPHILS PERCENT AUTO 79 % (41-73); Platelet Count 486 K/mm3 (150-400); RDW Standard Deviation 45.8 fL (35.1-46.3); Red Blood Cell Count 4.84 M/mm3 (4.30-5.90); White Blood Cell Count 13.76 K/mm3 (4.00-11.30)
[2019-01-16 07:26] LABS: Mean Corpuscular Volume 89 fL (80-100)
[2019-01-16 07:28] LABS: Alanine Aminotransfer (ALT/SGP 22 U/L (12-78); Albumin, Blood 3.7 g/dL (3.4-5.0); Alk Phos 75 U/L (50-136); Anion Gap 6 mmol/L (6-16); Aspartate Aminotrans (AST/SGOT 14 U/L (12-37); Bilirubin, Total 0.3 mg/dL (0.1-1.0); Blood Urea Nitrogen 16 mg/dL (8-24); Bun/Creatinine Ratio 19.9 (12.0-20.0); CO2, Blood 28 mmol/L (21-32); Chloride, Blood 104 mmol/L (98-108); Globulin, Blood 3.8 g/dL (2.2-4.0); Glomerular Filtration Rate >60 (60-); Glucose, Blood 121 mg/dL (70-99); Potassium, Blood 4.4 mmol/L (3.5-5.5); Sodium, Blood 138 mmol/L (136-145); Total Protein, Blood 7.5 g/dL (6.4-8.2)
== END 2019-01-16 08:33 | disposition home or self-care (01) ==
LOC: ER 06:50
PROVIDERS: Emergency Medicine
DX: N45.1 Epididymitis (principal); K57.92 Diverticulitis of intestine, part unspecified, without perforation or abscess without bleeding; Z87.440 Personal history of urinary (tract) infections; Z88.5 Allergy status to narcotic agent
CPT/HCPCS: 80053; 85025; 96361; 96374; 99284-25; J2405; J7030

== ENCOUNTER 2019-01-18 14:06 | Emergency (ER) | payer OTHER ==
[~2019-01-18] VITALS: Ht 170.2 cm; Wt 47.2 kg
[~2019-01-18 14:06] MED LIST changes: +Bactrim Ds Tab1 EACH PO; +OXYC5 PO
[2019-01-18] MEDS ORDERED: SERT25 PO (17:55)
[2019-01-18 18:21] LABS: BASOPHILS ABSOLUTE AUTO 0.04 K/mm3 (0.00-0.23); BASOPHILS PERCENT AUTO 0 % (0-2); EOSINOPHILS ABSOLUTE AUTO 0.02 K/mm3 (0.00-0.68); EOSINOPHILS PERCENT AUTO 0 % (0-6); Hematocrit 46.5 % (37.0-53.0); IMMATURE GRAN ABSOLUTE AUTO 0.04 K/mm3 (0.00-0.10); IMMATURE GRAN PERCENT AUTO 0 % (0-1); LYMPHOCYTES ABSOLUTE AUTO 1.26 K/mm3 (0.84-5.20); LYMPHOCYTES PERCENT AUTO 12 % (21-46); MONOCYTES ABSOLUTE AUTO 0.67 K/mm3 (0.16-1.47); MONOCYTES PERCENT AUTO 6 % (4-13); Mean Corpuscular HGB 29.2 pg (26.0-34.0); Mean Corpuscular HGB Conc 32.3 g/dL (31.5-36.5); Mean Corpuscular Volume 91 fL (80-100); Mean Platelet Volume 10.8 fL (9.1-12.4); NEUTROPHILS ABSOLUTE AUTO 8.87 K/mm3 (1.96-9.15); NEUTROPHILS PERCENT AUTO 81 % (41-73); Platelet Count 596 K/mm3 (150-400); RDW Standard Deviation 46.8 fL (35.1-46.3); Red Blood Cell Count 5.13 M/mm3 (4.30-5.90)
[2019-01-18 18:33] LABS: Alanine Aminotransfer (ALT/SGP 21 U/L (12-78); Albumin, Blood 4.1 g/dL (3.4-5.0); Alk Phos 75 U/L (50-136); Anion Gap 7 mmol/L (6-16); Aspartate Aminotrans (AST/SGOT 18 U/L (12-37); Bilirubin, Total 0.3 mg/dL (0.1-1.0); Blood Urea Nitrogen 14 mg/dL (8-24); Bun/Creatinine Ratio 21.2 (12.0-20.0); CO2, Blood 29 mmol/L (21-32); Calcium, Blood 9.5 mg/dL (8.5-10.1); Chloride, Blood 100 mmol/L (98-108); Creatinine, Blood 0.66 mg/dL (0.60-1.20); Glomerular Filtration Rate >60 (60-); Glucose, Blood 109 mg/dL (70-99); Potassium, Blood 4.5 mmol/L (3.5-5.5); Sodium, Blood 136 mmol/L (136-145); Total Protein, Blood 8.1 g/dL (6.4-8.2)
[2019-01-18] MEDS ORDERED: METO10 PO (19:40)
== END 2019-01-18 20:05 | disposition home or self-care (01) ==
LOC: ER 14:06
PROVIDERS: Emergency Medicine
DX: N45.1 Epididymitis (principal); K57.32 Diverticulitis of large intestine without perforation or abscess without bleeding; R11.2 Nausea with vomiting, unspecified; Z87.440 Personal history of urinary (tract) infections; Z88.5 Allergy status to narcotic agent; Z79.899 Other long term (current) drug therapy
CPT/HCPCS: 36415; 80053; 85025; 96361; 96374; 99284-25; J2405; J7030

== ENCOUNTER → 2019-01-22 | Outpatient (CLI) | payer OTHER ==
[~2019-01-22] MED LIST changes: +METO10 PO; +SERT25 PO
[2019-01-22 09:47] LABS: Anion Gap 12 mmol/L (6-16); Blood Urea Nitrogen 8 mg/dL (8-24); Bun/Creatinine Ratio 11.4 (12.0-20.0); CO2, Blood 27 mmol/L (21-32); Calcium, Blood 9.6 mg/dL (8.5-10.1); Chloride, Blood 97 mmol/L (98-108); Glomerular Filtration Rate >60 (60-); Glucose, Blood 100 mg/dL (70-99); Sodium, Blood 136 mmol/L (136-145)
[2019-01-22 09:48] LABS: Potassium, Blood 5.3 mmol/L (3.5-5.5)
[2019-01-25 12:31] LABS: Alanine Aminotransfer (ALT/SGP 15 U/L (12-78); Albumin, Blood 4.2 g/dL (3.4-5.0); Albumin/Globulin Ratio 1.2 (0.8-1.8); Alk Phos 74 U/L (40-126); Aspartate Aminotrans (AST/SGOT 32 U/L (12-37); Bilirubin, Total 0.6 mg/dL (0.1-1.0); Globulin, Blood 3.4 g/dL (2.2-4.0); Magnesium, Blood 2.3 mg/dL (1.6-2.4); Total Protein, Blood 7.6 g/dL (6.4-8.2)
[2019-01-25 12:52] LABS: Bilirubin, Direct <0.1 mg/dL (0.0-0.3); Bilirubin, Indirect Unable to Calculate mg/dL (0.1-0.7)
[2019-01-25 13:57] LABS: Percent Saturation 23.8 % (20.0-50.0)
== END | disposition home or self-care (01) ==
LOC: LAB EV 09:33
PROVIDERS: Family Medicine
DX: E86.0 Dehydration (principal); E46 Unspecified protein-calorie malnutrition
CPT/HCPCS: 80048; 80076; 82728; 83540; 83550; 83735

== ENCOUNTER 2019-03-26 05:28 | Inpatient (IN) | payer OTHER ==
[~2019-03-26] VITALS: Ht 170.2 cm; Wt 56.2 kg
[2019-03-26] MEDS ORDERED: ALBU90OI (06:48)
--- NOTE | 2019-03-26 06:49 | NUR ---
History, Chart, Medications and Allergies reviewed before start of procedure. Patient confirms NPO status and agrees with scheduled surgery. Lungs clear T/O to Auscultation. Patient reports completing Chlorhexadine shower X2 prior to admission to hospital. PATIENT HAD ONLY GLASSES AT ADMIT. NO JEWELRY, CONTACTS, HEARING DEVICES PRESENT AT ADMIT.
--- NOTE | 2019-03-26 07:04 | NUR ---
PATIENT HAS A BULDGING BONE ON LLE FROM FRACTURE AT 15 Y/O, WILL CONSULT WITH DR RIVERA TO DETERMINE IF WE SHOULD APPLY THE PAS TO THAT LEG.
--- NOTE | 2019-03-26 07:19 | NUR ---
PER DR RIVERA AND PATIENT LLE WILL HAVE A PAS APPLIED.
--- NOTE | 2019-03-26 07:19 | NUR ---
OR BEDSIDE REPORT WITH DAWSON SAMS RN.
--- NOTE | 2019-03-26 16:41 | NUR ---
PT ADMITTED TO ICU 15 AT 1635 FROM SURGICAL FLOOR 2ND POST OP BLEEDING. PT AWAKE PALE, DIAPHORETIC. BP STABLE. PT DENIES C/O NAUSEA. LARGE AMT OF BRIGHT RED BLOOD W CLOTS PER RECTUM. FENT EPIDURAL RUNNING AT 10 WITH BUPVACAINE.
[2019-03-26 16:56] LABS: BASOPHILS ABSOLUTE AUTO 0.02 K/mm3 (0.00-0.23); BASOPHILS PERCENT AUTO 0 % (0-2); EOSINOPHILS PERCENT AUTO 0 % (0-6); Hematocrit 37.9 % (37.0-53.0); Hemoglobin 11.8 g/dL (13.5-17.5); IMMATURE GRAN ABSOLUTE AUTO 0.05 K/mm3 (0.00-0.10); IMMATURE GRAN PERCENT AUTO 0 % (0-1); LYMPHOCYTES ABSOLUTE AUTO 0.74 K/mm3 (0.84-5.20); LYMPHOCYTES PERCENT AUTO 4 % (21-46); MONOCYTES ABSOLUTE AUTO 0.84 K/mm3 (0.16-1.47); MONOCYTES PERCENT AUTO 5 % (4-13); Mean Corpuscular HGB 29.1 pg (26.0-34.0); Mean Corpuscular HGB Conc 31.1 g/dL (31.5-36.5); Mean Corpuscular Volume 94 fL (80-100); NEUTROPHILS ABSOLUTE AUTO 15.52 K/mm3 (1.96-9.15); NEUTROPHILS PERCENT AUTO 90 % (41-73); Platelet Count 495 K/mm3 (150-400); RDW Coefficient Variation 13.9 % (11.7-14.2); RDW Standard Deviation 47.8 fL (35.1-46.3); Red Blood Cell Count 4.05 M/mm3 (4.30-5.90); White Blood Cell Count 17.17 K/mm3 (4.00-11.30)
--- NOTE | 2019-03-26 17:02 | NUR ---
RAPID RESPONSE RN WENT IN TO PT ROOM TO CHECK EPIDURAL SITE. PT PALE AND DIAPHORETIC. LANDFILL GAS COLLECTION SYSTEM OPERATOR NOTIFIED AND IN RM. ATTEMPTED TO TURN PT TO R SIDE AND NOTICED LARGE AMT BRIGHT RED BLOOD IN RECTAL AREA SATURATING SHEETS. PT POSITIONED ON BACK. LARGE AMT BRIGHT RED BLOOD AND CLOTS PRESENT BETWEEN PT'S LEGS. WINDOW TRIMMER INITIATED AT APPROX 1620. OR STAFF NOTIFIED DR RIVERA IN SURGERY. DECISION MADE TO TRANSFER TO ICU AT THIS TIME. REPORT GIVEN TO FEATHER CURLING MACHINE OPERATOR.
[2019-03-26 17:10] LABS: International Normalized Ratio 1.06; Prothrombin Time Results 11.2 Sec (9.7-11.5)
--- NOTE | 2019-03-26 17:10 | NUR ---
DR RIVERA AT BEDSIDE AT 1705. PER DR RIVERA SURGERY IS NOT INDICATED. DR GERONIMO AT BEDSIDE AND TOLD THAT EPIDURAL WAS DISCONNECTED AT SOME POINT DURING TRANSPORT. END OF EPIDURAL WIRE WIPED WELL AND RECONNECTED TO TUBING. DR GERONIMO GAVE V/O TO INCREASED FENT CONT RATE FROM 10 TO 12ML/HR W 4ML BOLUS Q 10MIN PRN. LR BOLUS INFUSING. PT STATES PAIN CAN RANGE FROM 0/3 TO 8/10. AD COMPOSITOR IS EFFECTIVE PER PT. PT HAS COMPLETE NUMBNESS TO LEFT LEG TO DERMATONE L1, CAN NOT MOVE LEG BUT CAN WIGGLE TOES. RIGHT LEG HAS NUMBNESS BUT NOT SIGNIFICANT TO L1, CAN MOVE RIGHT LEG. DR GERONIMO AWARE. PT MAY BE TILTED ON RIGHT SIDE TO HELP W NUMBNESS. PT WITH ANOTHER BRIGHT RED BM W CLOTS AT 1725. WILL CONT TO MONITOR VITALS CLOSELY AND REPORT ISSUES TO DR RIVERA.
[2019-03-26 17:19] LABS: Alanine Aminotransfer (ALT/SGP 34 U/L (12-78); Alk Phos 69 U/L (50-136); Anion Gap 7 mmol/L (6-16); Aspartate Aminotrans (AST/SGOT 21 U/L (12-37); Bilirubin, Total 0.9 mg/dL (0.1-1.0); Blood Urea Nitrogen 11 mg/dL (8-24); CO2, Blood 26 mmol/L (21-32); Chloride, Blood 106 mmol/L (98-108); Creatinine, Blood 0.79 mg/dL (0.60-1.20); Glomerular Filtration Rate >60 (60-); Glucose, Blood 163 mg/dL (70-99); Potassium, Blood 3.8 mmol/L (3.5-5.5); Sodium, Blood 139 mmol/L (136-145)
[2019-03-27 04:08] LABS: BASOPHILS ABSOLUTE AUTO 0.01 K/mm3 (0.00-0.23); BASOPHILS PERCENT AUTO 0 % (0-2); EOSINOPHILS ABSOLUTE AUTO 0.01 K/mm3 (0.00-0.68); EOSINOPHILS PERCENT AUTO 0 % (0-6); Hematocrit 25.6 % (37.0-53.0); IMMATURE GRAN ABSOLUTE AUTO 0.03 K/mm3 (0.00-0.10); IMMATURE GRAN PERCENT AUTO 0 % (0-1); LYMPHOCYTES ABSOLUTE AUTO 1.41 K/mm3 (0.84-5.20); LYMPHOCYTES PERCENT AUTO 14 % (21-46); MONOCYTES PERCENT AUTO 11 % (4-13); Mean Corpuscular HGB 29.3 pg (26.0-34.0); Mean Corpuscular HGB Conc 31.3 g/dL (31.5-36.5); Mean Corpuscular Volume 94 fL (80-100); NEUTROPHILS ABSOLUTE AUTO 7.53 K/mm3 (1.96-9.15); NEUTROPHILS PERCENT AUTO 75 % (41-73); Platelet Count 406 K/mm3 (150-400); RDW Standard Deviation 47.2 fL (35.1-46.3); Red Blood Cell Count 2.73 M/mm3 (4.30-5.90); White Blood Cell Count 10.09 K/mm3 (4.00-11.30)
[2019-03-27 04:30] LABS: Anion Gap 7 mmol/L (6-16); Blood Urea Nitrogen 12 mg/dL (8-24); CO2, Blood 27 mmol/L (21-32); Calcium, Blood 7.7 mg/dL (8.5-10.1); Chloride, Blood 109 mmol/L (98-108); Glomerular Filtration Rate >60 (60-); Glucose, Blood 133 mg/dL (70-99); Potassium, Blood 4.4 mmol/L (3.5-5.5); Sodium, Blood 143 mmol/L (136-145)
--- NOTE | 2019-03-27 06:23 | NUR ---
SUMMARY PATIENT RESTING T/O THE NIGHT WANTING TO REMAIN ON HIS BACK FOR COMFORT. EPIDURAL REMAINS IN PLACE TO LOW BACK WITH DRESSING CD&I. NUMBNESS TO LEFT LEG HAS CHANGED TO BE FROM HIGH THIGH TO UPPER HIPS, NUMBNESS TO RIGHT LEG STARTING HIGH LEG TO HIPS. PATIENT HAS MOVEMENT TO BOTH LEGS. PASSING BLOOD VIA RECTUM HAS SLOWED AND THE COLOR OF BLOOD HAS GOTTEN PROGRESSIVELY DARKER, WITH DARK MAROON CLOTS. LAST BM AT 0048.
--- NOTE | 2019-03-27 07:52 | NUR ---
PT AWAKE IN BED W C/O PAIN 9/10 TO ABD. PT HAS NUMBNESS LEFT SIDE TO DERMATOME T12, CAN MOVE LEG. NO NUMBNESS TO RIGHT SIDE. EPIDURAL SITE CHECKED; EPIDURAL INTACT, DRSG C/D/I, AREA WNL; NO SWELLING, BLEEDING, LEAKING. EPIDURAL LOOSE AT YELLOW CONNECTION PIECE. CLAMP OPEN, EPIDURAL 1CM UP FROM END UP CLAMP, EVEN WITH SECURE TAPE IN PLACE. EPIDURAL APPEARS TO HAVE LEAKED FROM CATHETER TO PT'S UPPER SHEETS AND PILLOW. EPIDURAL WIRE CLEANED AND ADVANCED BACK INTO CLAMP COMPLETELY, CLAMP CLICKED CLOSED. PT GIVEN FENT IVP 50MCG. WILL NOTIFY ANESTHESIOLOGIST. PT'S HGB 8.3, WILL NOTIFY MD; PT ASYMPTOMATIC, BP/HR STABLE, NO BLOODY BM SINCE 44. MIDLINE INCISION WITH SHANA WOUND VAC DRSG C/D/I. FAINT CRACKLES TO RRL; WILL GIVE I.S.
--- NOTE | 2019-03-27 09:34 | NUR ---
DR DEUTSCH CALLED TO GIVE UPDATE ON PT, INCLUDING DISCONNECTION OF EPIDURAL DURING NIGHT. 12CC CLINICIAN BOLUS ORDERED AND GIVEN AT 0934. PT CONT TO BE ANIMATED WITH PRESSURED SPEECH. NURSE FIBER OPTIC SPLICER AT BEDSIDE SPEAKING W PT NOW. BP STABLE.
--- NOTE | 2019-03-27 10:23 | NUR ---
PT STATES PAIN IS "MUCH BETTER" 4/10 AFTER BOLUS 12CC INFUSION. PT SLEEPING, EASILY AROUSES TO VOICE. CALL OUT TO DR RIVERA TO GIVE UPDATE, INQUIRE ABOUT LABS, LOVENOX WILL BE HELD UNTIL DR RIVERA OKAY'S TO START IR D/T GI BLEED.N PT HAS SCD'S ON.
--- NOTE | 2019-03-27 11:50 | NUR ---
SPOKE W DR RIVERA AT 1115, DR RIVERA GIVEN UPDATE. LOVENOX TO BE HELD TODAY. NO REPEAT H&H UNLESS PT BEGINS BLEEDING SIGNIFICANTLY AGAIN, PT MAY RETURN TO SURGICAL FLOOR.
--- NOTE | 2019-03-27 13:14 | NUR ---
REPORT GIVEN TO MAGDI MCKEON ON SURGICAL FLOOR.
--- NOTE | 2019-03-27 14:02 | NUR ---
03/27/19 1402 Zeenat Ornelas VERIFICATIONS: EDIT CHART.
--- NOTE | 2019-03-27 16:26 | NUR ---
ARRIVAL TO UNIT ICU TRANSFER AT APPROX 1530. PT ALERT AND ORIENTED. REPORTS PAIN 8/10. ENCOURAGING SUPERVISOR FILM PROCESSING EPIDURAL USE. MIDLINE DRESSING IS CDI. PT REPORTS THE NEED TO PASS GAS, BUT REPORTS "HOLDING IT IN" HE IS NERVOUS TO "HAVE AN ACCIDENT". PT EDUCATED ON THE IMPORTANCE OF LETTING GAS OUT. JUDITH CLEAR LIQ, ADVANCING TO FULL LIQ IN THE MORNING. DENIES N/V. EPIDURAL SITE CDI. DECREASED SENSATION TO LOWER ABD AND BLE. PT REPORTS MORE NUMBNESS TO LEFT LEG THAN RIGHT, BUT IS ABLE TO LIFT L LEG AT THIGH. NO BLEEDING NOTED AT THIS TIME. CALL LIGHT WITHIN REACH.
--- NOTE | 2019-03-27 17:22 | NUR ---
PT REPORTS "LEAKING" FROM RECTUM. SMEAR OF DARK BLOODY DRAINAGE NOTED. PT CLEANED UP AND PULLUPS PLACED.
--- NOTE | 2019-03-27 19:42 | NUR ---
1941: PT RESTING SUPINE WITH HOB ELEVATED AND RATES ABD PAIN 6/10 WITH FAIR TCDB EFFORT. EPIDURAL SITE WNL AND CATH TUBING SECURED WITH TAPE TO LEFT SHOULDER.
--- NOTE | 2019-03-27 21:21 | NUR ---
2120: PT HAS APPROXIMATELY 1000ML DARK JOHN BLOODY DISCHARGE FROM RECTUM AFTER PASSING GAS. ATTENDS PLACED, AND PT DENIES DIZZINESS, SOB, INTOLERABLE PAIN.
--- NOTE | 2019-03-28 02:30 | NUR ---
0230: PT HAS APPROXIMATELY 200 ML MAROON THICK DISCHARGE RECTALLY WHILE PASSING GAS. CONTINUES TO DENY DIZZINESS, HEADACHE, SOB. PAIN CONTINUES TO BE CONTROLLED WITH FENT EPIDURAL.
[2019-03-28 03:57] LABS: BASOPHILS ABSOLUTE AUTO 0.03 K/mm3 (0.00-0.23); BASOPHILS PERCENT AUTO 0 % (0-2); EOSINOPHILS ABSOLUTE AUTO 0.27 K/mm3 (0.00-0.68); EOSINOPHILS PERCENT AUTO 3 % (0-6); Hematocrit 20.5 % (37.0-53.0); Hemoglobin 6.4 g/dL (13.5-17.5); IMMATURE GRAN ABSOLUTE AUTO 0.02 K/mm3 (0.00-0.10); IMMATURE GRAN PERCENT AUTO 0 % (0-1); LYMPHOCYTES ABSOLUTE AUTO 1.57 K/mm3 (0.84-5.20); LYMPHOCYTES PERCENT AUTO 20 % (21-46); MONOCYTES ABSOLUTE AUTO 0.79 K/mm3 (0.16-1.47); MONOCYTES PERCENT AUTO 10 % (4-13); Mean Corpuscular HGB 29.4 pg (26.0-34.0); Mean Corpuscular HGB Conc 31.2 g/dL (31.5-36.5); Mean Corpuscular Volume 94 fL (80-100); Mean Platelet Volume 10.2 fL (9.1-12.4); NEUTROPHILS ABSOLUTE AUTO 5.28 K/mm3 (1.96-9.15); NEUTROPHILS PERCENT AUTO 66 % (41-73); Platelet Count 305 K/mm3 (150-400); RDW Standard Deviation 48.3 fL (35.1-46.3); Red Blood Cell Count 2.18 M/mm3 (4.30-5.90); White Blood Cell Count 7.96 K/mm3 (4.00-11.30)
[2019-03-28 04:13] LABS: Anion Gap 5 mmol/L (6-16); Blood Urea Nitrogen 6 mg/dL (8-24); Bun/Creatinine Ratio 9.4 (12.0-20.0); CO2, Blood 30 mmol/L (21-32); Calcium, Blood 7.6 mg/dL (8.5-10.1); Chloride, Blood 107 mmol/L (98-108); Creatinine, Blood 0.64 mg/dL (0.60-1.20); Glomerular Filtration Rate >60 (60-); Glucose, Blood 93 mg/dL (70-99); Potassium, Blood 3.6 mmol/L (3.5-5.5); Sodium, Blood 142 mmol/L (136-145)
--- NOTE | 2019-03-28 05:34 | NUR ---
0534: PT'S Hgb 6.4 THIS MORNING. NEW ORDERS FROM DR. RIVERA TO TRANSFUSE 2 UNITS PRBC'S AND HOLD LOVENOX. PT REMAINS ASYMPTOMATIC AND DENIES SOB, DIZZINESS. EPIDURAL MANAGES PAIN TO 3/10 WITH BOLUS HANDLE USE.
--- NOTE | 2019-03-28 15:27 | NUR ---
2 UNITS PRBC'S NOW TRANSFUSED. PT HAS TOLERATED WELL
--- NOTE | 2019-03-28 17:50 | NUR ---
SUMMARY: PT IS POD2 BOWEL RESECTION. NO ACUTE CHANGE TODAY. A/O. EPIDURAL CHECKS WNL, THERE IS SMALL AMOUNT DRIED BLOOD AROUND INSERTION SITE AND ON TAPE. NO LEAKING NOTED. PT REPORTS PAIN IS MANAGED, SEE DERMATONE CHECKS. SURGICAL SITE WNL. PT HAS HAD ABOUT 6 SMALL BROWN/RED LIQUID BM'S. PT DENIES DIZZINESS, VSS. 2 UNITS INFUSED. PLAN IS CTM AND DC EPIDURAL TOMORROW. WILL REPORT TO HENOK RN.
[2019-03-29 03:55] LABS: BASOPHILS ABSOLUTE AUTO 0.05 K/mm3 (0.00-0.23); BASOPHILS PERCENT AUTO 1 % (0-2); EOSINOPHILS ABSOLUTE AUTO 1.04 K/mm3 (0.00-0.68); EOSINOPHILS PERCENT AUTO 12 % (0-6); Hematocrit 28.4 % (37.0-53.0); Hemoglobin 9.3 g/dL (13.5-17.5); IMMATURE GRAN ABSOLUTE AUTO 0.02 K/mm3 (0.00-0.10); IMMATURE GRAN PERCENT AUTO 0 % (0-1); LYMPHOCYTES ABSOLUTE AUTO 1.71 K/mm3 (0.84-5.20); LYMPHOCYTES PERCENT AUTO 20 % (21-46); MONOCYTES ABSOLUTE AUTO 0.71 K/mm3 (0.16-1.47); MONOCYTES PERCENT AUTO 8 % (4-13); Mean Corpuscular HGB 29.9 pg (26.0-34.0); Mean Corpuscular HGB Conc 32.7 g/dL (31.5-36.5); NEUTROPHILS ABSOLUTE AUTO 5.26 K/mm3 (1.96-9.15); NEUTROPHILS PERCENT AUTO 60 % (41-73); Platelet Count 319 K/mm3 (150-400); RDW Coefficient Variation 13.6 % (11.7-14.2); RDW Standard Deviation 45.5 fL (35.1-46.3); Red Blood Cell Count 3.11 M/mm3 (4.30-5.90); White Blood Cell Count 8.79 K/mm3 (4.00-11.30)
[2019-03-29 03:56] LABS: Mean Corpuscular Volume 91 fL (80-100)
--- NOTE | 2019-03-29 08:21 | NUR ---
SUMMARY PT WITH LIQ BMS TONIGHT.POTENTIAL D/C OF EPIDURAL TODAY.
--- NOTE | 2019-03-29 16:28 | NUR ---
EPIDURAL CATH REMOVED AT THIS TIME,BLACK TIP INTACT. REMOVED BY THIS RN, OBSERVED BY JENN GLOVER RN.
--- NOTE | 2019-03-29 19:48 | NUR ---
SUMMARY: PT IS POD3 SIGMOID COLECTOMY. NO ACUTE CHANGE TODAY. SURGICAL SITE WNL. TOLERATING DIET, NO NAUSEA. SERVERAL SMALL BM'S WITH STOOL, RESIDUAL OF OLD BLOOD. DOING WELL AFTER EPIDURAL DC'D. GIVEN PO PAIN MED AND ABLE TO AMBULATE TO COMMODE WITH FWW AND ONE ASSIST. NO SAFETY CONCERNS AT THIS TIME. REPORT GIVEN TO MIKE GATICA
--- NOTE | 2019-03-30 07:30 | NUR ---
SUMMARY PT PASSING SOME FLATUS TONIGHT.RECEIVED SUBLIMAZE, PO MEDS, AND TORADOL FOR PAIN.DENIES N/T S/P EPIDURAL DC. LOPEZ IN PER ORDERS DUE TO FISTULA HX
--- NOTE | 2019-03-30 09:10 | NUR ---
PT REQ SOUP FOR BREAKFAST INSTEAD OF CREAM OF WHEAT ASKED IF HE NEEDED SOME IV PAIN MEDS AT THIS TIME STATED NO
--- NOTE | 2019-03-30 11:39 | NUR ---
OOB TO CHAIR PT REQ PAIN MEDS 2 TAB NORCO GIVEN
--- NOTE | 2019-03-30 12:30 | NUR ---
pt had nausea got back into bed asked if he wanted me to take out his tray stated he wanted to still keep it feels like it was from taking the pain meds on empty stomach
--- NOTE | 2019-03-30 16:10 | NUR ---
pt woke up from nap stated pain is worse also having more nausea no emesis was able to eat a little before falling asleep zofran 4 mg 50 mcg fent given pt declined the nelson
--- NOTE | 2019-03-30 17:12 | NUR ---
offered lennox samuels pt stated he is feeling better passing more gas earlier i walked with pt in the hallway past the nurses station pt stated he had not walked in the [facility] since surg just in his room discussed with pt amb will help his gas and that he needs to be walking freq
--- NOTE | 2019-03-30 17:52 | NUR ---
dr domínguez by to see pt
--- NOTE | 2019-03-31 04:51 | NUR ---
SHIFT SUMMARY PT RESTING WELL THIS AM. AAOX4/ANXIOUS AT TIMES. PAIN CONTROLLED WITH 2 NORCO Q4P + 50mcg FENTANYL X1 THIS SHIFT FOR BREAKTHROUGH PAIN. NO NAUSEA/EMESIS THIS NOC SHIFT. NO ACUTE CHANGES THIS SHIFT. CONTINUE TO ENCOURAGE AMBULATION TODAY + PO INTAKE TOLERATED. PT RESTING AT THIS TIME, NADN, WITH CALL LIGHT IN REACH.
--- NOTE | 2019-03-31 11:01 | NUR ---
PT TO RADIOLOGY AT THIS TIME.
--- NOTE | 2019-03-31 11:05 | NUR ---
REPORT GIVEN TO NUNO MCKEON TO ASSUME CARE.
--- NOTE | 2019-03-31 17:05 | NUR ---
SHIFT SUMMARY NO ACUTE CHANGES TODAY. JOHN DC'D PER DR. RIVERA ORDERS. VOIDING SPONTANEOUSLY. JUDITH FULL LIQ DIET. REPORTS PASSING GAS AND HAVING LIQ BROWN BMS. INDEP IN ROOM. WOUND VAC TO ABD REMAINS DRY AND INTACT. 2 NORCO FOR PAIN MANAGEMENT. USES CALL LIGHT APPROPRIATELY.
--- NOTE | 2019-04-01 04:28 | NUR ---
SHIFT SUMMARY PT POD#5 SIGMOID COLECTOMY. AAOX4/ANXIOUS AT TIMES. DISCOMFORT CONTROLLED WITH 2 NORCO Q4P. NO NAUSEA/EMESIS. ABD INCISION WITH SHANA QUARTER SIZE RED DRY DRAINAGE NOTED, NO CHANGE THIS SHIFT. BOWEL TONES HYPERACTIVE X4 QUADS T/O SHIFT. PT INDEPENDENT IN ROOM. GOOD PO INTAKE + OUTPUT. LARGE AMOUNTS OF FLATUS THIS SHIFT. PT RESTING WELL THIS AM WITH CALL LIGHT IN REACH.
--- NOTE | 2019-04-01 15:39 | NUR ---
SHIFT SUMMARY PT A&OX4, VSS, POD5 SIGMOID COLECTOMY, SHANA VAC DC'D, SUSY VIJAY & CDI. PAIN MANAGEMENT W/ 10 MG NORCO Q4. JUDITH PO, DENIES N&V. VOIDING WELL, BM TODAY. INDEPENDENT IN ROOM. WILL REPORT TO ONCOMING NOC RN.
--- NOTE | 2019-04-02 05:06 | NUR ---
SHIFT SUMMARY: FAWN IS POD7 FOR HIS SIGMOID COLECTOMY. HE IS PASSING GAS AND HAVING BMs WITHOUT DIFFICULTY. ABDOMEN SOFT. HE HAS COMPLAINED OF PAIN FOR WHICH HE IS TAKING 10 MG OF NORCO WHICH HE REPORTS HAS ALLOWED HIM TO REST INTERMITTENTLY THROUGHOUT THE SHIFT. HE IS INDEPENDENT TO THE BATHROOM, NO DIFFICULTIES WITH URINATION. HE HAS SUSY TO HIS MIDLINE INCISION WHICH ARE DRY AND INTACT. HE PLANS TO DISCHARGE HOME TODAY. HE IS TOLERATING A FULL LIQUID DIET WITHOUT DIFFICULTY. HE DENEIS ANY N/V. HE IS ABLE TO MAKE HIS NEEDS KNOWN. HE IS LYING IN BED WITH HIS CALL LIGHT IN REACH.
[2019-04-02] MEDS ORDERED: HYDR1TAB94 PO (12:53)
[2019-04-02] MEDS ORDERED: ONDA4ODT PO (12:54)
--- NOTE | 2019-04-02 14:36 | NUR ---
DISCHARGE: PACKET PRINTED AND PT EDUCATED. MEDS CALLED TO [facility]. SCRIPTS SENT WITH PT. LEFT UNIT VIA WHEELCHAIR WITH LINK LUBIN AT ABOUT 1350
== END 2019-04-02 13:56 | disposition home or self-care (01) | DRG 674 ==
LOC: SURS 05:28 → PRE IP 07:30 → SURS 12:30 → ICUW 16:44 → SURS 03-27 14:25
PROVIDERS: Family Medicine; ADMIT Surgery
PROC: 0DTN0ZZ Resection of Sigmoid Colon, Open Approach (ICD-10-PCS; principal; 2019-03-26 07:30)
PROC: 30233N1 Transfusion of Nonautologous Red Blood Cells into Peripheral Vein, Percutaneous Approach (ICD-10-PCS; 2019-03-28)
DX: N32.1 Vesicointestinal fistula (principal); K57.92 Diverticulitis of intestine, part unspecified, without perforation or abscess without bleeding; D62 Acute posthemorrhagic anemia
CPT/HCPCS: 36415; 36430; 51610; 74450; 80048; 80053; 85025; 85610; 86850; 86900; 86901; 86923; 88307; A9270-GY; J1100; J1885; J2250; J2370; J2405; J2543; J2550; J2704; J3010; J7030; J7120; P9016; Q9967; V2790